=== PATIENT | female | born 1960 | race African-American/Black ===

== ENCOUNTER 2021-01-16 20:21 | Emergency (ER) | payer OTHER ==
[2021-01-16 20:35] VITALS: BP 173/99; PULSE 90; TEMP 98.3; BMI 28.1
[2021-01-16] MEDS ORDERED: DIPHTH,PERTUSS(ACELL),TET 0.5 ML DISP.SYRIN IM ONE ×2 (20:51)
[2021-01-16] MEDS ORDERED: LIDOCAINE 2.5%/PRILOCAINE 2.5% (5 Gram/TUBE) TP ONE (21:20)
== END 2021-01-16 22:24 | disposition home or self-care (01) ==
LOC: FER 20:21
PROC: 0HQ1XZZ Repair Face Skin, External Approach (ICD-10-PCS; principal; 2021-01-16)
PROC: 3E0234Z Introduction of Serum, Toxoid and Vaccine into Muscle, Percutaneous Approach (ICD-10-PCS; 2021-01-16)
DX: S01.21XA Laceration without foreign body of nose, initial encounter (principal)
CPT/HCPCS: 90715; 99284-25

== ENCOUNTER 2023-03-01 08:12 | Emergency (ER) | payer OTHER ==
[2023-03-01 08:31] VITALS: PULSE 88; RESP 20; TEMP 98.3; BMI 27.1
[2023-03-01] MEDS ORDERED: FAMOTIDINE 20 MG TABLET PO ONE (09:14)
[2023-03-01] MEDS ORDERED: IBUPROFEN 400 MG TABLET (FP) PO ONE ×2 (09:14→09:20)
[2023-03-01] MEDS ORDERED: FAMOTIDINE 20 MG TABLET ONE (09:20)
[2023-03-01 11:08] VITALS: BP 141/85
== END 2023-03-01 13:18 | disposition home or self-care (01) ==
LOC: FER 08:12
DX: G44.209 Tension-type headache, unspecified, not intractable (principal)
CPT/HCPCS: 70450-TC; 99284-25